=== PATIENT | female | born 1955 | race African-American/Black ===

== ENCOUNTER 2016-09-23 14:05 | Outpatient (RCR) | payer BC | END 2016-10-04 | disposition home or self-care (01) | LOC: PTY 14:05 | DX: M17.0 Bilateral primary osteoarthritis of knee (principal); M75.92 Shoulder lesion, unspecified, left shoulder ==

== ENCOUNTER 2018-12-20 20:58 | Emergency (ER) | payer OTHER ==
[~2018-12-20] VITALS: Ht 160 cm; Wt 59.0 kg
[~2018-12-20 20:58] MED LIST: TYLENOL EXTRA500 MG ORAL
[2018-12-20 21:06] VITALS: BP 144/83
--- NOTE | 2018-12-20 21:06 | NUR ---
ED Nurse Note: pt walked in to ER C/O hematuria and dysuria, reports having burning sensation when she urinates. it started yesterday. pt is alert x4. VSS
[2018-12-20 21:39] LABS: BASOPHILS % (AUTO) 0.7 % (0.0-2.0); EOSINOPHILS % (AUTO) 0.4 % (0.0-3.0); HEMATOCRIT 47.5 % (37.0-47.0); HEMOGLOBIN 15.8 G/DL (12.0-16.0); LYMPHOCYTES % (AUTO) 20.2 % (20.0-45.0); MEAN CORPUSCULAR VOLUME 95 FL (80-99); MONOCYTES % (AUTO) 8.3 % (1.0-10.0); NEUTROPHILS % (AUTO) 70.4 % (45.0-75.0); PLATELET COUNT 227 K/UL (150-450); RED CELL DISTRIBUTION WIDTH 10.6 % (11.6-14.8); WHITE BLOOD COUNT 7.2 K/UL (4.8-10.8)
[2018-12-20 21:39] LABS: APPEARANCE,URINE SLIGHTLY CLOUDY; BILIRUBIN, URINE NEGATIVE (NEGATIVE); GLUCOSE, URINE (UA) NEGATIVE (NEGATIVE); KETONES,URINE NEGATIVE (NEGATIVE); LEUKOCYTE ESTERASE ,URINE 2+ (NEGATIVE); NITRITE,URINE NEGATIVE (NEGATIVE); PH,URINE 5 (4.5-8.0); PROTEIN,URINE NEGATIVE (NEGATIVE); UROBILINOGEN,URINE NORMAL MG/DL (0.0-1.0)
[2018-12-20 21:41] LABS: COLOR,URINE YELLOW
[2018-12-20 21:51] LABS: ANION GAP 9 mmol/L (5-15); BLOOD UREA NITROGEN 19 mg/dL (7-18); CALCIUM 9.4 MG/DL (8.5-10.1); CARBON DIOXIDE 29 MMOL/L (21-32); CHLORIDE 109 MMOL/L (98-107); CREATININE 0.8 MG/DL (0.55-1.30); POTASSIUM 3.6 MMOL/L (3.5-5.1); SODIUM 147 MMOL/L (136-145)
[2018-12-20 21:56] LABS: ALANINE AMINOTRANSFERASE 17 U/L (12-78); ALBUMIN 4.1 G/DL (3.4-5.0); ALBUMIN/GLOBULIN RATIO 1.1 (1.0-2.7); ALKALINE PHOSPHATASE 70 U/L (46-116); ASPARTATE AMINO TRANSFERASE 13 U/L (15-37); BILIRUBIN,TOTAL 0.4 MG/DL (0.2-1.0)
[2018-12-20] MEDS ORDERED: Isovue-300 100ml vial INJ PRN (22:00)
--- NOTE | 2018-12-20 22:33 | NUR ---
ED Nurse Note: pt went to CT
--- NOTE | 2018-12-20 23:24 | Diagnostic Imaging Report ---
Indication: Abdominal pain Technique: Continuous helical transaxial imaging of the abdomen and pelvis was obtained from the lung bases to the pubic symphysis during intravenous contrast administration. Coronal 2-D reformats were also obtained. Study obtained in a Siemens sensation [address] Automatic Exposure Control was utilized. Total Dose length Product (DLP): 634.[address] Dose Index Volume (CTDIvol): 13.88 mGy Comparison: None Findings: Lung bases are clear. Periportal edema demonstrated. The liver is unremarkable otherwise. The pancreas and spleen, gallbladder, kidneys appear unremarkable. Mild distention of fluid-filled small bowel noted in the lower abdomen. Moderate stool demonstrated in the colon. There is no free fluid. Urinary bladder is unremarkable. The uterus appears atrophic but is probably present. There are few diverticula in the sigmoid colon. No evidence of acute diverticulitis. The appendix is partially visualized and appears normal. IMPRESSION: Consider mild enteritis. Correlate clinically. Moderate stool Periportal edema, nonspecific. Mild diverticulosis of the colon. No definite diverticulitis. [facility] has communicated the preliminary results to the Emergency Department. Their findings are largely concordant with this report. The CT scanner at [facility] is accredited by the [employer] and the scans are performed using dose optimization techniques as appropriate to a performed exam including Automatic Exposure control.
[2018-12-20] MEDS ORDERED: CEPHALEXIN500 MG ORAL (23:34)
[2018-12-20] MEDS ORDERED: PHENAZOPYRIDIN100 MG ORAL (23:34)
[2018-12-20 23:41] VITALS: BP 133/81
--- NOTE | 2018-12-20 23:41 | NUR ---
ER DISCHARGE NOTE: Patient is cleared to be discharged per ERMD, pt is aox4, on room air, with stable vital signs. pt was given dc and prescription instructions, pt was able to verbalize understanding, pt id band and iv site removed without complications. pt is able to ambulate with steady gait. pt took all belongings.
--- NOTE | 2018-12-21 02:44 | Emergency Room Report ---
History of Present Illness General Chief Complaint: General Complaint Source: Patient Present Illness HPI 63-year-old female presents ED for evaluation. Complaining of hematuria which started yesterday. Noted dark urine. Also noted some discomfort with urinating. Denies fevers or chills. Denies flank pain. Denies nausea or vomiting. Denies abdominal pain. Denies taking blood thinners. No other aggravating relieving factors. Denies any other associated symptoms Allergies: Coded Allergies: No Known Allergies (Unverified , 09/23/16) Patient History Past Medical History: none Past Surgical History: none Pertinent Family History: none Social History: Denies: smoking, alcohol use, drug use Last Menstrual Period: n/a Now: No Immunizations: UTD Reviewed Nursing Documentation: PMH: Agreed; PSxH: Agreed Nursing Documentation-PMH Past Medical History: No Stated History Review of Systems All Other Systems: negative except mentioned in HPI Physical Exam Vital Signs Date Time Temp Pulse Resp B/P (MAP) Pulse Ox O2 Delivery O2 Flow Rate FiO2 12/20/18 21:00 98.8 58 18 147/88 (107) 98 Room Air 12/20/18 21:06 99 Sp02 EP Interpretation: reviewed, normal General Appearance: no apparent distress, alert, GCS 15, non-toxic Head: normocephalic Eyes: bilateral eye normal inspection, bilateral eye PERRL ENT: normal ENT inspection Neck: normal inspection Respiratory: chest non-tender, lungs clear, normal breath sounds, speaking full sentences Cardiovascular #1: regular rate, rhythm, no edema Gastrointestinal: normal bowel sounds, non tender, soft, non-distended, no guarding, no rebound Rectal: deferred Genitourinary: no CVA tenderness Musculoskeletal: normal inspection Neurologic: alert, oriented x3, responsive, motor strength/tone normal, sensory intact, speech normal Psychiatric: normal inspection Skin: no rash Lymphatic: normal inspection Medical Decision Making Diagnostic Impression: Primary Impression: Cystitis Additional Impression: Hematuria Qualified Codes: R31.9 - Hematuria, unspecified ER Course Hospital Course 63 yo F presents with hematuria Differential diagnosis includes- aortic dissection, kidney stones, cystitis/ pyelonephritis Clinical course Patient placed on stretcher. After initial history and physical I ordered labs , IV fluids, and CT scan Labs - no leukocytosis, electrolytes ok, UA + blood CT A/P - bladder thickening likely cystitis Discussed findings with patient. Will discharge to home with antibiotics. States she has a PMD. Safe for discharge for close outpatient follow-up I feel this is a highly complex case requiring extensive working including EKG/ Rhythm strip, Xray/CT/US, Blood/urine lab work, repeat exams while in ED, and administration of strong opiates/narcotics for pain control, admission to hospital or close patient follow up. Diagnosis - cystitis, hematuria Stable and discharged to home with Rx Keflex, Pyridium. Followup with PMD. Return to ED if symptoms recur or worsen Labs Test 12/20/18 21:08 12/20/18 21:25 Urine Color Yellow Urine Appearance Slightly cloudy Urine pH 5 (4.5-8.0) Urine Specific [place] 1.025 (1.005-1.035) Urine Protein Negative (NEGATIVE) Urine Glucose (UA) Negative (NEGATIVE) Urine Ketones Negative (NEGATIVE) Urine Blood 5+ (NEGATIVE) Urine Nitrite Negative (NEGATIVE) Urine Bilirubin Negative (NEGATIVE) Urine Urobilinogen Normal MG/DL (0.0-1.0) Urine Leukocyte Esterase 2+ (NEGATIVE) Urine RBC 60-80 /HPF (0 - 2) Urine WBC 5-10 /HPF (0 - 2) Urine Squamous Epithelial Cells Few /LPF (NONE/OCC) Urine Bacteria Few /HPF (NONE) White Blood Count 7.2 K/UL (4.8-10.8) Red Blood Count 5.00 M/UL (4.20-5.40) Hemoglobin 15.8 G/DL (12.0-16.0) Hematocrit 47.5 % (37.0-47.0) Mean Corpuscular Volume 95 FL (80-99) Mean Corpuscular Hemoglobin 31.5 PG (27.0-31.0) Mean Corpuscular Hemoglobin Concent 33.2 G/DL (32.0-36.0) Red Cell Distribution Width 10.6 % (11.6-14.8) Platelet Count 227 K/UL (150-450) Mean Platelet Volume 7.1 FL (6.5-10.1) Neutrophils (%) (Auto) 70.4 % (45.0-75.0) Lymphocytes (%) (Auto) 20.2 % (20.0-45.0) Monocytes (%) (Auto) 8.3 % (1.0-10.0) Eosinophils (%) (Auto) 0.4 % (0.0-3.0) Basophils (%) (Auto) 0.7 % (0.0-2.0) Sodium Level 147 MMOL/L (136-145) Potassium Level 3.6 MMOL/L (3.5-5.1) Chloride Level 109 MMOL/L (98-107) Carbon Dioxide Level 29 MMOL/L (21-32) Anion Gap 9 mmol/L (5-15) Blood Urea Nitrogen 19 mg/dL (7-18) Creatinine 0.8 MG/DL (0.55-1.30) Estimat Glomerular Filtration Rate > 60 mL/min (>60) Glucose Level 106 MG/DL (74-106) Calcium Level 9.4 MG/DL (8.5-10.1) Total Bilirubin 0.4 MG/DL (0.2-1.0) Aspartate Amino Transf (AST/SGOT) 13 U/L (15-37) Alanine Aminotransferase (ALT/SGPT) 17 U/L (12-78) Alkaline Phosphatase 70 U/L (46-116) Total Protein 7.9 G/DL (6.4-8.2) Albumin 4.1 G/DL (3.4-5.0) Globulin 3.8 g/dL Albumin/Globulin Ratio 1.1 (1.0-2.7) Lipase 346 U/L (73-393) CT/MRI/US Diagnostic Results CT/MRI/US Diagnostic Results : Imaging Test Ordered: CT A/P Impression ADDENDUM - Added by Jarad Johnson MD on 12/20/2018 11:28 PM (-07:00) CT ABDOMEN & PELVIS With Contrast: Lower lungs: No acute findings. Liver: Unremarkable. Periportal edema likely from IV fluids. Gallbladder: Unremarkable. Spleen, pancreas, and adrenal glands: No acute findings. Kidneys: No hydronephrosis or obstructive nephrolithiasis. Bowel: No bowel obstruction. Copious amounts of stool throughout the colon, correlate with constipation. Appendix: No convincing appendicitis. Bladder: Mild wall thickening, correlate for cystitis. Vessels: No aortic aneurysm. Bones: No acute fracture. Last Vital Signs Date Time Temp Pulse Resp B/P (MAP) Pulse Ox O2 Delivery O2 Flow Rate FiO2 12/20/18 23:41 98.2 68 18 133/81 99 Room Air 12/20/18 21:06 99 Status: improved Disposition: HOME, SELF-CARE Condition: Stable Scripts Phenazopyridine Hcl* (PYRIDIUM*) 100 Mg Tablet 100 MG ORAL THREE TIMES A DAY for 3 Days, TAB Prov: Sarthak Alonso MD 12/20/18 Cephalexin* (KEFLEX*) 500 Mg Capsule 500 MG ORAL EVERY 6 HOURS for 7 Days, CAP Prov: Sarthak Alonso MD 12/20/18 Patient Instructions: Hematuria, Adult Sarthak Alonso MD Dec 21, 2018 02:44
== END 2018-12-20 23:41 | disposition home or self-care (01) ==
LOC: EMR 21:40
DX: N30.01 Acute cystitis with hematuria (principal)
CPT/HCPCS: 36415; 74177; 80053; 81003; 83690; 85025; Q9967; Z7502; 99284